=== PATIENT | male | born 1945 | race Caucasian/White ===

== ENCOUNTER 2021-02-04 08:17 | Emergency (ER) | payer OTHER, MEDICARE, SELFPAY ==
--- NOTE | ~2021-02-04 | XR_ITS ---
EXAMINATION: XR chest 2V DATE: 02/04/2021 09:09 INDICATION: Past smoker presenting with productive cough. TECHNIQUE: frontal and lateral views of the chest were obtained. COMPARISON: None FINDINGS: Right internal jugular central venous port catheter with distal tip at the midsuperior vena cava. Bro nchial wall thickening in the infrahilar regions on the lateral projection without focal airspace con solidation suggesting bronchitis. No pulmonary edema, pleural effusion or pneumothorax. The cardiomed iastinal silhouette is normal. Visualized bones and soft tissues are unremarkable. IMPRESSION: 1. Mild bronchial wall thickening in the infrahilar regions without focal airspace consolidation whic h could be seen with bronchitis or reactive airway disease/asthma. 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 Mild bronchial wall thickening in the infrahilar regions without focal airsp paco consolidation which could be seen with bronchitis or reactive airway diseas e/asthma.
--- NOTE | 2021-02-04 08:32 | ED.URI ---
HPI - URI/Sore Throat General Chief Complaint: Upper Respiratory Infection Stated Complaint: cough/sob/congestion Time Seen by Provider: 02/04/21 08:32 Source: patient Mode of arrival: ambulatory Limitations: no limitations History of Present Illness HPI Narrative: Mark Huston is a 75 yo male with PMH of esophageal cancer, DM 2, who comes to [facility] with continued congestion and cough with sinus drainage triggering cough at night so that he can sleep. He states he has continued to run a low-grade fever running between 100-100.5 through yesterday. States his energy is returning but the cough is still annoying, no nausea vomiting or diarrhea Seen at his Saturday last week for pneumonia treated with a Z-Christian, at the time he had a flu swab which was negative for both a and B Related Data Home Medications Medication Instructions Recorded Confirmed metformin 500 mg PO BID 02/04/21 02/04/21 Allergies Allergy/AdvReac Type Severity Reaction Status Date / Time meperidine [From Demerol] Allergy Anxiety Verified 02/04/21 08:56 Review of Systems Review of Systems: CONSTITUTIONAL: Denies fever, chills, sweats. EYES: Denies visual changes, redness, discharge. ENT: Has rhinorrhea, has congestion, sore throat, otalgia. CARDIOVASCULAR: Denies chest pain, palpitations, edema. RESPIRATORY: Denies dyspnea, wheezing, has cough GASTROINTESTINAL: Denies abdominal pain, nausea, vomiting, diarrhea. GENITOURINARY: Denies dysuria, hematuria, abnormal discharge SKIN: Denies rash or itching. NEUROLOGIC: Denies numbness, or focal weakness. PSYCHIATRIC: Denies anxiety or depression. PMFSH Past Medical History Medical History (Updated 02/04/21 @ 10:11 by Hillary Mathias CNP) Diabetes Esophageal cancer History of chemotherapy Port-A-Cath in place Social History Social History (Updated 02/04/21 @ 08:56 by Hillary Mathias CNP) Smoking status: Never smoker Alcohol intake: current Comments At time of signature, I agree with nursing past medical, surgical, social and family history. There is no relevant family history pertinent to the presenting complaint. Exam Narrative: GENERAL: This is a well-nourished, well-developed patient, in mild distress. HEAD: normocephalic, atraumatic. EYES: . Sclera clear/white. Vision is grossly intact. EARS: External ears normal, auditory canals clear and without drainage, TMs normal without perforation. Hearing grossly intact. NOSE: External nose normal without nasal discharge, nares without redness, has rhinorrhea. THROAT: Mucous membranes moist, posterior pharynx erythema NECK: Neck supple, non-tender CARDIOVASCULAR: Regular rate and rhythm without murmurs, gallops, or rubs. RESPIRATORY: Clear to auscultation. Breath sounds equal bilaterally. Bilateral basilar wheezes, no rales, or rhonchi. GASTROINTESTINAL: Abdomen soft, non-tender, SKIN: warm, intact with no suspicious lesions or rash, good texture and turgor. NEURO: awake, alert, and oriented to person, place and time. There were no obvious focal neurologic abnormalities. Steady gait EXTREMITIES: Normal range of motion. BACK: Nontender without deformity Course Course Emergency Course: Patient is here for continued congestion and cough after being treated last week for pneumonia and completed Zithromax Chest x-ray shows mild bronchial wall thickening without focal airspace consolidation has could be seen in bronchitis or reactive airway disease Started on prednisone and codeine cough syrup as already has Jadyn at home Vital Signs Vital signs: Vital Signs Temperature 98.6 F 02/04/21 08:40 Pulse Rate 81 02/04/21 08:40 Respiratory Rate 16 02/04/21 08:40 Blood Pressure 118/60 02/04/21 08:40 Pulse Oximetry 96 02/04/21 08:40 Temperature 98.6 F 02/04/21 08:40 Pulse Rate 81 02/04/21 08:40 Respiratory Rate 16 02/04/21 08:40 Blood Pressure 118/60 02/04/21 08:40 Pulse Oximetry 96 02/04/21 08:40
[2021-02-04 08:40] VITALS: BP 118/60; PULSE 81; RESP 16; TEMP 37; O2SAT 96
== END 2021-02-04 10:20 | disposition home or self-care (01) ==
PROVIDERS: Emergency Provider Nurse Practitioner
DX: J40 Bronchitis, not specified as acute or chronic (principal); E11.9 Type 2 diabetes mellitus without complications; Z85.01 Personal history of malignant neoplasm of esophagus
CPT/HCPCS: 71046; 99203; G0463

== ENCOUNTER 2024-01-27 09:44 | Emergency (ER) | payer OTHER, MEDICARE, SELFPAY ==
[2024-01-27 10:00] VITALS: BP 106/55; PULSE 72; RESP 16; TEMP 36.8; O2SAT 97
--- NOTE | 2024-01-27 10:43 | ED.URI ---
HPI - URI/Sore Throat General Chief Complaint: Upper Respiratory Infection Stated Complaint: phlegm,cough Time Seen by Provider: 01/27/24 10:43 Source: patient, RN notes reviewed and old records reviewed Mode of arrival: ambulatory Limitations: no limitations History of Present Illness HPI Narrative: 78-year-old male presents to the [facility] with cough since Saturday, 5 days. recently diagnosed with bronchitis Reports that he used ?leftover penicillin. ? Had also used his 's inhaler this morning. Related Data Home Medications Medication Instructions Recorded Confirmed metformin 500 mg tablet 500 mg PO BID 02/04/21 01/27/24 atorvastatin 20 mg tablet 20 mg PO DAILY 01/27/24 01/27/24 metoprolol tartrate 50 mg tablet 50 mg PO DAILY 01/27/24 01/27/24 omeprazole 40 mg capsule,delayed 40 mg PO DAILY 01/27/24 01/27/24 release Allergies Allergy/AdvReac Type Severity Reaction Status Date / Time meperidine [From Demerol] AdvReac Intermediate Anxiety Verified 01/27/24 10:06 Review of Systems Review of Systems: All systems reviewed & are unremarkable except as noted in HPI and below Constitutional: Constitutional: Reports no additional constitutional complaints ENT: Reports system reviewed and no additional complaints, except as documented Cardiovascular: Cardiovascular: Reports no additional cardiovascular complaints, Denies chest pain and Denies dyspnea Respiratory: Respiratory: Reports as per HPI, Reports chest congestion, Reports cough and Denies dyspnea Gastrointestinal: Gastrointestinal: Reports no additional gastrointestinal complaints, Denies abdominal pain, Denies nausea and Denies vomiting Musculoskeletal: Musculoskeletal: Reports no additional musculoskeletal complaints Integumentary/Breasts: Skin/Breast: Reports system reviewed and no additional complaints, except as docu PMFSH Past Medical History Medical History Diabetes Esophageal cancer History of chemotherapy Port-A-Cath in place Social History Social History Smoking status: Never smoker Alcohol intake: current Comments At the time of my signature, I reviewed and agree with the nursing past medical, surgical, social, and family history. There is no relevant family history pertinent to the patient complaint. Exam Const: General: cooperative, no acute distress, well developed, alert, ill appearing chronically, uncomfortable and well nourished Nutritional Appearance: well nourished Orientation/consciousness: patient oriented x3 Limitations: no limitations HENMT: Head: normal to inspection Ears: hearing grossly normal bilaterally, external ears normal, TM's normal bilaterally, EAC's normal, mastoids normal and no periauricular adenopathy Face/Nose/Sinus: Normal external nose present, normal facial exam and face symmetric Face and sinus: normal facial exam and face symmetric Mouth: Yes Normal oral and palatal mucosa present, Yes lip normal and Yes tongue normal Throat: uvula midline, postnasal drainage and no uvular edema Eyes: General: appearance normal, both eyes and all related structures Alignment and Position: alignment normal Periorbital: periorbital findings normal Neck: Neck: normal visual inspection, full ROM, no lymphadenopathy and no meningeal signs Chest: Chest palpation & inspection: normal inspection of the chest Resp: Effort & Inspection: normal respiratory effort and able to speak in complete sentences Auscultation: clear to auscultation bilaterally, no crackles, no rales, no rhonchi, no wheezes and diminished lung sounds bilateral Cardio: Rate: regular rate Skin: General skin exam: normal color and no rashes or lesions noted Lesions: no lesions Rashes: no rashes Wounds: no wounds Neuro: General: patient oriented x3, gait normal, tone normal, moves all extremities and no meningeal signs Cognition (Neuro): normal cognition Speech: normal speech Gait exam (Neuro): Normal gait present Extrem: General: normal to inspection, full ROM, capillary refill normal and normal gait Psych: Appearance: grossly normal and well kempt Mental Status: mental status grossly normal Speech and movement: Normal speech and movement present and Clear speech present Affect: normal affect Attitude: cooperative Course Course Level of Care: Express Care Visit Vital Signs Vital signs: Vital Signs Temperature 98.3 F 01/27/24 10:00 Pulse Rate 72 01/27/24 10:00 Respiratory Rate 16 01/27/24 10:00 Blood Pressure 106/55 L 01/27/24 10:00 Pulse Oximetry 97 01/27/24 10:00 Oxygen Delivery Room Air 01/27/24 10:00 Temperature 98.3 F 01/27/24 10:00 Pulse Rate 72 01/27/24 10:00 Respiratory Rate 16 01/27/24 10:00 Blood Pressure 106/55 L 01/27/24 10:00 Pulse Oximetry 97 01/27/24 10:00 Oxygen Delivery Room Air 01/27/24 10:00 Reviewed MDM - URI/Sore Throat MDM Narrative Medical decision making narrative: Patient sitting comfortably in exam room. Nontoxic, vitals stable. Patient presents with 5 day history upper respiratory symptoms. Patient with significant past medical history will prescribe antibiotics but most likely this is due to a virus. Patient appropriate for outpatient treatment and follow-up Discharge instructions reviewed with patient, as well as provided in writing per nursing staff. The instructions also include specific and strict return/GO TO THE ER as well as f/u information. All questions have been answered, and the patient deny any further questions with discharge and discharge plan. Some parts of this dictation were generated by voice recognition software and may contain typographical and/or grammatical inaccuracies. Differential Diagnosis Differential diagnosis: Likely upper respiratory infection, otitis media, sinusitis, viral infection, bronchitis, influenza and pharyngitis Critical Care Time Critical Care Time Critical Care Time: No Discharge Plan Discharge Clinical Impression: Bronchitis Patient Disposition: Home, Self-Care Condition: Stable Instructions: Antibiotic Form, Acute Bronchitis (ED) Additional Instructions: -Alternate Tylenol and Motrin per package directions for fever or pain. You can alternate every 4 hours -Antihistamine medication such as Benadryl at night and Zyrtec/Claritin/Akrlie during the day can help improve symptoms. -doing daily nasal irrigations can help relieve pressure your sinuses. Things like a Neti pot -Use Flonase twice a day for 5 days then daily to help reduce the inflammation and dry up your sinuses. -You can also use Mucinex. Be sure to drink plenty of water with this medication at least 8 ounces with every dose and it is important to drink 8 to 10 glasses of water per day. Water is a natural decongestant -Eat and drink things that are easy to swallow, like tea or soup, or popsicles. -Oral rinses such as: Salt water gargles and/or may use topical anesthetic (eg. Chloraseptic spray) or lozenges to relieve dryness or throat pain). -Frequent hand washing or hand personal care service provider is one of the best ways to prevent spread of infection. -Using a vaporizer or humidifier at night will also help thin secretions and help with coughing up phlegm. -Follow up with primary care provider in 7-10 days if condition is not improving - For new or worsening symptoms go directly to the nearest ER Patient Language: Latvian Prescriptions: New doxycycline monohydrate 100 mg tablet 100 mg PO BID Qty: 14 0RF albuterol sulfate 90 mcg/actuation HFA aerosol inhaler 2 puff inhalation QID PRN (Reason: shortness of breath or wheezing) Qty: 6.7 0RF (DME) Aerochamber MV Spacer See Rx Instructions .Route Qty: 1 0RF Rx Instructions: As directed prednisone 20 mg tablet See Rx Instructions .Route .COMPLEX Qty: 18 0RF Rx Instructions: Take 60 mg daily for 3 days, 40 mg daily for 3 days, 20 mg daily for 3 days No Action metformin 500 mg Tablet 500 mg PO BID atorvastatin 20 mg tablet 20 mg PO DAILY omeprazole 40 mg capsule,delayed release(DR/EC) 40 mg PO DAILY metoprolol tartrate 50 mg tablet 50 mg PO DAILY Follow-up/Referrals: PHYSICIAN NOT ON STAFF,NONSTAFF [Primary Care Provider] - Stand Alone Forms: Work/School Release IP Time of Disposition: 11:01
== END 2024-01-27 11:08 | disposition home or self-care (01) ==
PROVIDERS: Emergency Provider Nurse Practitioner
DX: J40 Bronchitis, not specified as acute or chronic (principal); E11.9 Type 2 diabetes mellitus without complications; Z79.84 Long term (current) use of oral hypoglycemic drugs; Z85.01 Personal history of malignant neoplasm of esophagus; Z92.21 Personal history of antineoplastic chemotherapy
CPT/HCPCS: 99211; G0463